=== PATIENT | male | born 1990 | race Asian ===

== ENCOUNTER 2018-06-27 16:27 | Emergency (ER) | payer OTHER ==
[~2018-06-27] VITALS: Ht 175.3 cm; Wt 80.3 kg
[2018-06-27] MEDS ORDERED: NKM (16:40)
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
[2018-06-27 16:51] VITALS: BP 109/73
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
--- NOTE | 2018-06-27 17:00 | NUR ---
ED Nurse Note: X-ray taken at the bedside.
--- NOTE | 2018-06-27 17:16 | NUR ---
ED Nurse Note: pt went down to CT in stable condition.
--- NOTE | 2018-06-27 17:29 | NUR ---
ED Nurse Note: Pt came back in stable condition.
--- NOTE | 2018-06-27 18:15 | NUR ---
ED Nurse Note: COBY at bedside speaking to the pt about X-ray and CT results. pt verbalized understanding. per pt, he has planned to go to [place] on Friday. Per COBY, pt should follow up with Orthopedic doctor in [place].
--- NOTE | 2018-06-27 18:18 | NUR ---
ED Nurse Note: Splint is being applied on Rt arm at bedside.
[2018-06-27] MEDS ORDERED: IBUPROFEN600 MG ORAL (18:25)
[2018-06-27 18:51] VITALS: BP 109/73
--- NOTE | 2018-06-27 18:52 | NUR ---
ER DISCHARGE NOTE: Patient is cleared to be discharged per ERMD after splint applied on Rt arm, pt is aox4, on room air, with stable vital signs. pt was given dc prescription and instructions, pt was able to verbalize understanding, pt id band removed. pt is able to ambulate with steady gait. pt took all belongings.
--- NOTE | 2018-06-28 10:14 | Diagnostic Imaging Report ---
Indication: Right elbow trauma and pain. Abnormal x-ray Technique: Continuous helical transaxial imaging of the right elbow was obtained. Coronal and Sagittal 2-D reformats were also obtained. Study obtained in a Siemens sensation [address] Total Dose length Product (DLP): [address] Dose Index Volume (CTDIvol): 0.15, 0.15, 11.52 mGy Comparison: None Findings: Correlation made with plain x-ray obtained earlier. There is some artifact present on the examination which shadow limits evaluation. There is a joint effusion again demonstrated with elevation of the fat pad anteriorly and posteriorly. There is no acute fracture or malalignment identified on this study. The presence of the joint effusion suggestive of occult fracture. A follow-up plain x-ray evaluation in 7-10 days or MRI may be of benefit. IMPRESSION: Joint effusion again demonstrated. Suspect occult fracture, which is not definitely seen on this exam. A follow-up MRI may be helpful for diagnosis if clinically warranted. [facility] has communicated the preliminary results to the Emergency Department. Their findings are largely concordant with this report. The CT scanner at [facility] is accredited by the [employer] and the scans are performed using dose optimization techniques as appropriate to a performed exam including Automatic Exposure control.
--- NOTE | 2018-06-28 11:29 | Diagnostic Imaging Report ---
Indication: left hand pain. Comparison: None Findings: 3 views of the left hand were obtained. Normal alignment is demonstrated. No acute fractures, erosions, or periosteal reaction are seen. Soft tissues are unremarkable. Impression: No acute findings.
--- NOTE | 2018-06-28 11:42 | Diagnostic Imaging Report ---
Indication: elbow pain/injury Findings: 3 views of the right elbow were obtained. No acute fractures, malalignment, erosions or periostitis are identified. Joint effusion demonstrated. Soft tissues are unremarkable. Impression: Negative for acute injury. Refer to CT report
== END 2018-06-27 18:53 | disposition home or self-care (01) ==
LOC: EMR 17:08
DX: S42.401A Unspecified fracture of lower end of right humerus, initial encounter for closed fracture (principal); M25.542 Pain in joints of left hand; W19.XXXA Unspecified fall, initial encounter; Y92.9 Unspecified place or not applicable
CPT/HCPCS: 29105; 99284